=== PATIENT | female | born 1940 | race Caucasian/White ===

== ENCOUNTER 2016-09-16 19:54 | Day surgery (SDC) | payer MEDICARE ==
[~2016-09-16] VITALS: Ht 170.2 cm; Wt 79.8 kg
[2016-09-17 00:18] LABS: HEMATOCRIT 36.3 % (36.0-48.0); HEMOGLOBIN 11.6 g/dL (12-16); LYMPHOCYTES 14.9 % (15-50); MCH 25.8 pg (26.0-34.0); MCV 80.7 fL (80.0-100.0); MEAN PLATELET VOLUME 10.3 fL (7.4-10.4); NEUTROPHILS 77.2 % (40-80); PLATELET COUNT 222 10x3/uL (130-400); RDW 15.1 % (11.5-14.5); WBC 6.9 10x3/uL (4.8-10.8)
[2016-09-17 00:22] LABS: INR 0.97 (0.85-1.17); PROTIME 12.7 SECONDS (11.6-15.0)
[2016-09-17 00:27] LABS: ALBUMIN 3.7 g/dL (3.4-5.0); ALKALINE PHOSPHATASE 119 U/L (46-116); ALT (SGPT) 51 U/L (10-68); BILIRUBIN - TOTAL 0.38 mg/dL (0.2-1.3); CALC OSMOLALITY 275 mosm/kg (275-300); CALCIUM 9.1 mg/dL (8.5-10.1); CARBON DIOXIDE 32.9 mmol/L (21.0-32.0); CHLORIDE - SERUM 99 mmol/L (98-107); CREATININE - SERUM 0.6 mg/dL (0.6-1.3); GLUCOSE 121 mg/dL (74-106); POTASSIUM - SERUM 3.4 mmol/L (3.5-5.1); PROTEIN - SERUM 7.9 g/dL (6.4-8.2); SODIUM 138 mmol/L (136-145); UREA NITROGEN 10 mg/dL (7-18); eGFR NON AFRICAN AMERICAN > 90 mL/min (90-120)
[2016-09-17 01:48] VITALS: BP 186/99; BMI 27.6
[2016-09-17 04:00] VITALS: BP 175/74
[2016-09-17] MEDS ORDERED: NAPROXEN SODIU550 M1 PO (05:49)
[2016-09-17] MEDS ORDERED: LEVOTHYROXINE50 MCG PO (05:50)
[2016-09-17] MEDS ORDERED: LISINOPRIL10 MG PO (05:50)
--- NOTE | 2016-09-17 08:05 | NUR ---
PATIENT IS AWAKE AND ALERT, RATES PAIN A 1, DOES C/O HIP PAIN THAT SHE SAYS IS SORE. REQUESTED TO SEE HAND XRAY. ASKED HER TO ASK THE PHYSICIAN. PATIENTS FAMILY AT BEDSIDE.
--- NOTE | 2016-09-17 08:41 | NUR ---
MARLEE JOY APN ASSESSED PATIENT AND SHE IS GOING TO HAVE SURGERY THIS AM BY DR. SANTO. LEFT WRIST PINNING.
[2016-09-17 08:47] VITALS: BP 147/68
--- NOTE | 2016-09-17 10:30 | NUR ---
CONSENTS SIGNED BY PATIENT, BUT SHE REFUSED TO SIGN THE ANESTHESIA CONSENT UNTIL SHE SPOKE TO ANESTHESIOLOGIST.
--- NOTE | 2016-09-17 11:18 | NUR ---
IV access-20 gauge inserted in right hand for IV access. Priscilla Honeycutt RN
--- NOTE | 2016-09-17 11:55 | NUR ---
PREOP MEDS GIVEN AND PATIENT TAKEN TO SURGERY.
[2016-09-17 13:07] VITALS: Ht 170.2 cm; Wt 79.8 kg
--- NOTE | 2016-09-17 13:12 | NUR ---
PATIENT BACK FROM SURGERY, LEFT ARM IN SLING, PATIENT TOLERATING WELL.
--- NOTE | 2016-09-17 15:00 | NUR ---
PATIENT REQUESTING TO GO HOME.
--- NOTE | 2016-09-17 16:30 | NUR ---
PROVIDING PATIENT LAST IV ANTIBIOTICS AND NURSE PRACTITIONER HAS STATED SHE CAN GO HOME. ICE CAP APPLIED TO RIGHT WRIST.
[2016-09-17] MEDS ORDERED: DILAUDID4 MG PO (17:19)
--- NOTE | 2016-09-17 19:16 | NUR ---
DISCHARGED TO HOME AMBULATORY WITH FAMILY. DISCHARGE INSTRUCTIONS GIVEN BOTH VERBALLY AND WRITTEN. ALL QUESTIONS ANSWERED. PATIENT AND FAMILY VERBALIZED UNDERSTANDING OF SAME. IV TO RIGHT HAND D/C WITH CATHERTER INTACT. FAMILY IN ROOM.
--- NOTE | 2016-10-05 13:10 | OP ---
PATIENT NAME: JANET DICK MEDICAL RECORD: [id number] :39 LOCATION:[facility] ADMISSION DATE: SURGEON: CARIN SANTO MD DATE OF OPERATION: 09/17/2016 PREOPERATIVE DIAGNOSIS: Comminuted distal radius fracture of the left wrist. POSTOPERATIVE DIAGNOSIS: Comminuted distal radius fracture of the left wrist. PROCEDURE: Closed reduction internal fixation of left wrist. SURGEON: Carin Santo MD. ANESTHESIA: General. INTRAOPERATIVE COMPLICATIONS: None. SUMMARY OF PATHOLOGIC FINDINGS: The patient had a very distal comminuted distal radius fracture. OPERATIVE SUMMARY IN DETAIL: After obtaining the appropriate orthopedic surgery consents as well as anesthetic consultation, evaluation and clearance, the patient was brought to the operating room and placed on the operating table in supine position. After general laryngeal mask was administered, tourniquet was placed about the proximal aspect of left upper extremity. Left upper extremity was then prepped and draped in routine sterile fashion. Traction-countertraction maneuver was required to reduce the wrist and after the wrist was reduced, it was felt that plating was not an option given the distal aspect of this, although the articular portions were well reduced. At this point, a radial styloid to ulnar cortex pin was placed and then a total of 3 dorsal pins were placed in order to buttress the distal radius and maintain the radial angle of inclination as well as the volar tilt. After the pins were placed, radiographs were taken and submitted for radiologist review. The K-wires were clipped and covered with Jurgan balls. Sterile dressings were applied. A volar splint was applied. The patient was awakened, extubated, and taken to recovery room in stable condition. All final needle and sponge counts were correct. TRANSINT:[id number] Voice Confirmation ID: [id number] DOCUMENT ID: [id number] CARIN SANTO MD at 1310 CC: [id number] DICTATION DATE: 10/01/16 1328 HEAVY EQUIPMENT FIELD MECHANIC: 10/01/16 1457 [facility] 09/17/16 [place] [id number] [place] [id number]
== END 2016-09-17 19:19 | disposition home or self-care (01) ==
LOC: OBSVTIME → D.MS 19:54 → D.OPS 19:54 → D.ER 19:54 → D.MS 23:40 → D.ER 23:43 → D.MS 23:43 → OBSVTIME 09-17 08:00 → EDSTATUS 09-17 10:30 → D.OPS 09-17 19:19 → D.MS 09-17 19:19
PROVIDERS: Emergency Medicine
DX: S52.532A Colles' fracture of left radius, initial encounter for closed fracture (principal); W19.XXXA Unspecified fall, initial encounter; Y93.89 Activity, other specified; Y92.018 Other place in single-family (private) house as the place of occurrence of the external cause; I10 Essential (primary) hypertension; E07.9 Disorder of thyroid, unspecified

== ENCOUNTER → 2017-10-27 19:27 | Outpatient (CLI) | payer MEDICARE ==
[2016-09-17 13:07] VITALS: BMI 27.5
[~2017-10-27 19:27] MED LIST: DILAUDID4 MG PO; DITROPAN X5 MG/BOTTL PO; IBUPROFEN600 MG PO; LEVOTHYROXINE50 MCG PO; NAPROXEN SODIU550 M1 PO; NORCO 7.5/325 T1 TA1 PO; PRINIVIL20 MG PO
== END | disposition home or self-care (01) ==
LOC: D.MAMMO 09:30
DX: N63.10 Unspecified lump in the right breast, unspecified quadrant (principal)

== ENCOUNTER 2017-12-08 07:50 | Day surgery (SDC) | payer MEDICARE ==
[2017-12-07 11:11] LABS: HEMATOCRIT 39.5 % (36.0-48.0); HEMOGLOBIN 12.8 g/dL (12-16); MCH 26.6 pg (26.0-34.0); MCHC 32.4 g/dL (31.0-37.0); MCV 82.1 fL (80.0-100.0); MEAN PLATELET VOLUME 10.9 fL (7.4-10.4); RBC 4.81 10x6/uL (4.00-5.40); RDW 14.6 % (11.5-14.5); WBC 5.3 10x3/uL (4.8-10.8)
[~2017-12-08] VITALS: Ht 167.6 cm; Wt 75.0 kg
--- NOTE | ~2017-12-08 | OP ---
PATIENT NAME: JANET DICK MEDICAL RECORD: [id number] :39 LOCATION:[facility] ADMISSION DATE: SURGEON: SAVANNAH ASHLEY MD DATE OF OPERATION: 12/08/2017 SURGEON: Savannah Ashley MD ANESTHESIA: General anesthesia by Dr. Jorge Hawk. DIAGNOSES: Stress urinary incontinence, [place]-Walker grade 4 midline cystocele, [place]-Walker grade 2 rectocele and enterocele grade II. PROCEDURES: Cystoscopy, examination under anesthesia, repair of bladder perforation, pubovaginal sling with bovine dermis [employer] Xenform 2 x 4 cm graft, cystocele repair using [employer] Xenform bovine dermis graft 8 x 12 cm, rectocele repair by levator ani muscle plication using 0 Prolene sutures times 6 with a 2-0 Prolene suture to repair the perineal body. SPECIMEN: Posterior vaginal wall mucosa. FINDINGS: Cystocele grade 3, stress urinary incontinence noted when suprapubic pressure was applied with the cystocele being manually reduced, rectocele grade 2 all [place]-Walker scale. Intraoperative bladder perforation about 5 mm in length on the lateral bladder surface. This was due to the Capio suture regional otr company driver passing a suture through the bladder wall. Ureteral orifices are distant from the site of injury. ESTIMATED BLOOD LOSS: 150 mL CLINICAL HISTORY: This is a 77-year-old female who is status post hysterectomy. She has an issue with incomplete bladder emptying, and on examination, she has a visible midline cystocele and a rectocele. She had multiple questions about her surgery, which I answered preoperatively in the office. Specifically, she consented to have cystocele repair with mesh. She was aware of the risks of mesh use. However, if issues arose we would switch to using dermal graft. We will try to do all the repairs through a vaginal approach. If the anterior and posterior repairs lead to significant enterocele developing later on, we can do an abdominal sacral colpopexy at that time. She had a bowel prep at home. The debated in my mind was whether or not she should have a pubovaginal sling at the same time as the cystocele repair. She does not currently describe any stress urinary incontinence. However, it is known that reduction of a cystocele may unmask occult stress urinary incontinence. Therefore, I was going to examine her under anesthesia to determine whether this may be the situation or not. She is allergic to codeine. She has ampicillin and sulbactam 3 grams IV composition siding worker to the OR. DESCRIPTION OF PROCEDURE: The patient was given induction of general anesthesia. She was placed in the dorsal lithotomy position and prepped and draped. A weighted speculum was used to hold down the posterior vaginal wall. A Roque catheter 16-Upper Sorbian was placed into the bladder and put to bag drainage. Stay sutures of #2 nylon were used to retract the labia majora laterally. These were anchored to the medial thighs. The cystocele was clearly visible. We infiltrated the anterior vaginal wall with Pitressin solution. Twenty units of Pitressin was dissolved in 100 mL of injectable saline. This OPERATIVE REPORT [id number] JANET DICK was used to inject the anterior vaginal wall for hydrodissection. As I was planning initially to use mesh for cystocele repair, a transverse incision was made at the level of the bladder neck. Metzenbaum scissors were used to dissect the bladder away from the vaginal mucosa. Laterally, we entered through the pubocervical fascia. We entered the space of Retzius anteriorly. Posteriorly, we entered the presacral space to expose the sacrospinous ligaments. At this time, we had the [employer] Uphold graft and we placed the left arm of the graft through the left sacrospinous ligament using the Capio suture regional otr company driver. The landmark is the ischial spine, which is the insertion point of the sacrospinous ligament. The Capio was then moved 1 cm medially from the ischial spine to avoid hitting the pudendal nerve and internal pudendal artery. The graft arm on the left side went cleanly through the sacrospinous ligament and was found to be very strong when we pulled on the suture. On the right side, I had considerable difficulty getting the bladder out of the way. I used a malleable retractor to keep the excessively redundant bladder out of the way. Eventually, I got what appeared to be a good bite. I pulled on the suture did test the strength of its anchorage. We then got a sung of urine coming out of the bladder. The tugging on the suture pulled through the bladder wall exposing a small laceration. The Roque catheter was removed and we performed cystoscopy. This showed 2 small lacerations of full thickness in the bladder wall. These were on the anterior right lateral wall. They were anterior to the ureteral orifices by some distance. With the bladder full with saline from the cystoscope, we could identify the locations of these small lacerations. In order to facilitate visualization of the lateral wall of the bladder, I turned the transverse incision into a T-shaped incision by cutting the anterior vaginal wall midline with Metzenbaum scissors. This allowed us to pull the bladder over to the opposite side and allowed us to see the right lateral wall of the bladder much more easily. The laceration points were seen. 3-0 Vicryl running sutures were used in a single layer to close each of these holes. Due to the presence of the bladder leak, mesh is contraindicated. Therefore, I will be using bovine dermis, which is marketed by [employer] [address] [employer] under the trade name of Xenform. This will be the graft material for the pubovaginal sling and the cystocele repairs. The distance from ischial spine to ischial spine was measured with a flexible ruler at 12 cm. The distance from the bladder neck to the apex of our vaginal dissection was 6 cm. On an 8 x 12 cm Xenform sheet, an arch was drawn out posteriorly. The mid portion of the graft was cut so that the mid portion distance was only 6 cm. This arch gives room for the rectum to prevent difficulty with defecation. At this point, the Capio sutures were again used to place five 2-0 Polyglytone sutures. They were placed one in each sacrospinous ligament. The anterior sutures were placed at the apex of the obturator membrane on each side. Finally, an apical midline suture at the apex of the vaginal dissection where the cervical cuff would have been, was placed. We then went suprapubically to produce the pubovaginal sling. A 2 cm incision was made transversely at the level of the symphysis pubis. Blunt dissection was used with the fingers to get down to the rectus fascia. Stamey needles were then passed through the suprapubic incision down into the OPERATIVE REPORT [id number] JANET DICK vaginal dissection space. The needle tips were intercepted by a finger in the space of Retzius. This finger guided the needle tip down and prevented injury to the bladder along its passage. Once the Stamey needles were placed on each side, the Roque catheter was again removed and cystoscopy was performed. No bladder injury from the needle passage was seen. The bladder was filled to capacity with the cystoscope. The cystoscope was then removed. A horizontal mattress suture of 2-0 Prolene was placed on either end of the 2 x 4 cm Xenform strip. This would serve as a pubovaginal sling. The tails of the sutures were placed through the eyelet of the Stamey needles. The needles were then withdrawn so that the sutures were drawn suprapubically. Initially, the graft was placed flat under the mid urethra with no tension on the suspensory sutures. Once I applied suprapubic pressure and reduced the cystocele manually, we could see leakage of urine per the urethra. Gradually, the tension on the suspensory sutures was increased until no further leakage was seen with suprapubic pressure. Rubber shod clamps were then applied to the suspensory sutures at this point to prevent any migration of the sutures while they are being tied down. The suspensory sutures were tied to each other and then the rubber shods were removed. The suprapubic incision was washed out with normal saline and then israel were used to close the skin incision. Going down below in the vaginal dissection space, the sling graft tended to curl. I unfurled it to make it completely flat under the mid urethra. A small tacking suture of 4-0 Vicryl was placed against the distal edge of the pubovaginal sling and going to the periurethral tissue to prevent its curling inwards. This completed the pubovaginal sling. As far as the cystocele repair was concerned we placed the graft into position. The 5 suspensory sutures were placed in their respective areas on the graft. The graft was then placed into position by pulling it down with forceps. All of the suspensory sutures were tied down and this resulted in excellent reduction of the cystocele. There was no further leakage of urine from the bladder. The vaginal wound was irrigated out using normal saline. The vaginal mucosa was closed using running 4-0 Monocryl. We then turned our attention to the rectocele repair. The posterior vaginal wall was infiltrated with Pitressin solution for hydrodissection. A ramana shaped area of the posterior vaginal wall mucosa was marked. The incision was made using #15 blade. Metzenbaum scissors were used to dissect the posterior vaginal wall mucosa off the rectum. This ramana shaped specimen was sent to pathology for identification. We then dissected along the lateral edges of the vaginal mucosa, posterior vaginal mucosa until we got lateral to the rectum on each side. Blunt dissection was then used to allow us to reach the levator ani muscles (pubococcygeus, and iliococcygeus) on each side. We then placed 0 Prolene sutures using the Capio suture regional otr company driver. These were placed through the levator muscles on either side in a horizontal mattress fashion and then tied down. We started from the deepest suture first and progressively worked our way out. A total of 5 of these 0 Prolene sutures were placed using the Capio suture regional otr company driver. This resulted in complete reduction of the rectocele. The perineal body was still deficient. A 2-0 Prolene conventional suture was used in a horizontal mattress fashion to close the perineal body defect. The vaginal dissection space was then irrigated out with normal saline containing gentamicin. We then closed the posterior vaginal wall mucosa with running 4-0 Monocryl. The Roque catheter was inserted back into the bladder. This will be kept in for a period of 10 days to allow the bladder to heal. Vaginal packing consisting of Kerlix infiltrated with estrogen cream was placed in the vagina. The patient will be kept for 23-hour OPERATIVE REPORT [id number] JANET DICK. Tomorrow morning, the vaginal packing will be removed. She will be going home with a Roque catheter. TRANSINT:[id number] Voice Confirmation ID: [id number] DOCUMENT ID: [id number] SAVANNAH ASHLEY MD at 2024 CC: [id number] DICTATION DATE: 12/08/171708 TITLE INVESTIGATOR: 12/08/171918 [facility] [address] [place] [id number]
[~2017-12-08 07:50] MED LIST changes: -DITROPAN X5 MG/BOTTL PO; -NORCO 7.5/325 T1 TA1 PO
[2017-12-08 09:55] VITALS: BP 128/75; BMI 26.7
[2017-12-08 18:10] VITALS: BP 152/70
[2017-12-08 19:24] VITALS: BP 162/77
[2017-12-08 19:49] VITALS: BP 146/67
[2017-12-08 20:45] VITALS: BP 141/65; Ht 167.6 cm; Wt 75.0 kg
[2017-12-09 00:08] VITALS: BP 156/70
[2017-12-09 04:32] VITALS: BP 130/60
[2017-12-09 09:20] VITALS: BP 144/65
[2017-12-09] MEDS ORDERED: NORCO 7.5/325 T1 TA1 PO (13:47)
[2017-12-09] MEDS ORDERED: DITROPAN X5 MG/BOTTL PO (13:48)
== END 2017-12-09 15:00 | disposition home or self-care (01) ==
LOC: D.LD 07:50 → D.OPS 07:50 → D.PAN 10:20 → D.OPS 11:00 → D.PAN 11:00 → D.LD 17:27 → D.OPS 12-09 15:00
PROVIDERS: Anesthesiology
DX: N39.3 Stress incontinence (female) (male) (principal); N81.11 Cystocele, midline; N81.2 Incomplete uterovaginal prolapse; Z01.812 Encounter for preprocedural laboratory examination

== ENCOUNTER → 2018-04-14 17:37 | Outpatient (CLI) | payer MEDICARE ==
[2017-12-08 20:45] VITALS: BMI 26.7
[~2018-04-14 17:37] MED LIST changes: +DITROPAN X5 MG/BOTTL PO; +NORCO 7.5/325 T1 TA1 PO
== END | disposition home or self-care (01) ==
LOC: D.LABREF 17:37
DX: R31.9 Hematuria, unspecified (principal); D72.829 Elevated white blood cell count, unspecified

== ENCOUNTER → 2018-05-02 18:37 | Outpatient (CLI) | payer MEDICARE ==
[2017-12-08 20:45] VITALS: BMI 26.7
== END | disposition home or self-care (01) ==
LOC: D.LABREF 18:37
DX: D72.829 Elevated white blood cell count, unspecified (principal)

== ENCOUNTER 2018-05-19 06:56 | Day surgery (SDC) | payer MEDICARE ==
[2018-05-18 12:12] LABS: HEMATOCRIT 39.8 % (36.0-48.0); HEMOGLOBIN 12.8 g/dL (12-16); MCH 26.6 pg (26.0-34.0); MCHC 32.2 g/dL (31.0-37.0); MCV 82.7 fL (80.0-100.0); RBC 4.81 10x6/uL (4.00-5.40); RDW 14.9 % (11.5-14.5); WBC 6.2 10x3/uL (4.8-10.8)
[~2018-05-19] VITALS: Ht 167.6 cm; Wt 74.4 kg
--- NOTE | ~2018-05-19 | OP ---
PATIENT NAME: JANET DICK MEDICAL RECORD: [id number] :39 LOCATION:D[facility] ADMISSION DATE: SURGEON: TORIBIO ASHLEY MD DATE OF OPERATION: 05/19/2018 SURGEON: Toribio Ashley MD ANESTHESIA: General anesthesia by Marcio Mccray MD DIAGNOSES: Urinary retention post-pubovaginal sling; recurrence of cystocele, grade III. PROCEDURE: Cystoscopy; urethrolysis; cystocele repair with mesh graft, [employer] Uphold. FINDINGS: Well-incorporated fascial graft. Grade III [place]-Walker scale cystocele. Heavily trabeculated bladder with no bladder tumors. No bladder injury. Single ureteral orifices on each side. BLOOD LOSS: Less than 50 mL. CLINICAL HISTORY: This is a 77-year-old female who had stress urinary incontinence as well as pelvic prolapse post-hysterectomy. She had earlier this year a pubovaginal sling and cystocele repair using bovine fascia. She also had a rectocele repair with levator ani plication. Postoperatively, she has been in chronic urinary retention. She performs self-intermittent catheterization several times a day. Also, when I examined her, she has recurrence of the cystocele, grade III. Her rectocele repair has held and it is well reduced. She comes today to have a urethrolysis performed to loosen up her pubovaginal sling. Also, I will place a new cystocele repair using mesh this time. She is aware of the risks of infection with mesh use. SHE IS ALLERGIC TO CODEINE. She was given Ancef IV inspector precision assembly to the OR. DESCRIPTION OF PROCEDURE: The patient was given induction of general anesthesia. She was then placed in dorsal lithotomy position and shaved, prepped and draped. A weighted speculum was placed to hold the posterior vaginal wall down. A Roque catheter was placed in the bladder and put to bag drainage. A #1 nylon sutures were placed through the labia majora and anchored to the medial thighs. These stay sutures acted to open up the labia. The cystocele was very evident and down to the introitus. The anterior vaginal wall was infiltrated with Pitressin solution. Twenty units of Pitressin and 100 mL of injectable normal saline was used for hydrodissection. A transverse incision was then made at the bladder neck using a #15 scalpel. Dissection was then performed using Metzenbaum scissors. The bladder was dissected away from the anterior vaginal wall. Posteriorly, we reentered the presacral space. I could still feel the suspensory sutures from the fascial graft in place there. Anteriorly, we cleaned up the obturator membrane. We had a very clear route for placement of our Capio sutures in the near future. I then focused on the urethra. The area on the right side of the urethra seemed to be a little more easy to access. The grafts were still visible. However, they were well incorporated into the bladder tissue. I lifted up the inferior edge of the urethral graft, lateral to the urethra. By using a right angle dissector, I was able to finally make a plane between the periurethral tissues and the graft. I was eventually able to completely transect the fascial graft on the right lateral side of the urethra for the urethrolysis. OPERATIVE REPORT [id number] JANET DICK We then focused on placement of the cystocele repair graft, which will be a mesh graft. The trade name is [employer]. The Capio suture was loaded with the graft tail. The sacrospinous ligament was identified. It's anchorage to the ischial spine was identified. About 1 cm medial to the ischial spine, the Capio suture was placed through the sacrospinous ligament. This was done on each side. We then brought the graft arms through in order to start reduction of the cystocele. There is a stripe on the graft, indicating the midline of the graft. At the apex of the vaginal dissection, I placed a 2-0 Vicryl suture through the vaginal mucosa. This was placed in the corresponding location at the apical notch of the graft. In this situation, we took the Roque catheter out and cystoscopy was performed. Cystoscopic findings are as outlined above. We took the Roque catheter out and cystoscopy was performed. No bladder injury was identified. The cystoscope was then removed and the Roque catheter was placed back into the bladder. All the sutures were tied down; that is, the apical suture was tied down and the 2 lateral graft arms were pulled through the sacrospinous ligaments to complete reduction of the cystocele. Another suture of 2-0 Vicryl was placed near the bladder neck to hold down the distal portion of the graft so that the graft would not curl up. At this point, the wound was irrigated out with normal saline. The vaginal mucosa was closed using running 4-0 Monocryl. The vagina was packed with Kerlix infiltrated with estrogen cream. The patient will have the vaginal packing removed prior to going home today. We also removed her Roque catheter for a voiding trial today. I will see her in followup next week. TRANSINT:[id number] Voice Confirmation ID: [id number] DOCUMENT ID: [id number] TORIBIO ASHLEY MD at 1624 CC: [id number] DICTATION DATE: 05/19/18 1326 DRAG SAWYER: 05/19/18 1430 [place] [id number] [place] [id number]
[2018-05-19 07:53] VITALS: BP 129/78; Ht 167.6 cm; Wt 74.4 kg
== END 2018-05-19 16:20 | disposition home or self-care (01) ==
LOC: D.OPS 06:56 → D.PAN 09:45 → D.OPS 16:20
PROVIDERS: Anesthesiology
DX: N99.89 Other postprocedural complications and disorders of genitourinary system (principal); R33.9 Retention of urine, unspecified; N81.10 Cystocele, unspecified; N32.89 Other specified disorders of bladder; Z88.5 Allergy status to narcotic agent; Z79.899 Other long term (current) drug therapy

== ENCOUNTER → 2018-06-06 16:20 | Outpatient (CLI) | payer MEDICARE ==
[2018-05-19 07:53] VITALS: BMI 26.5
== END | disposition home or self-care (01) ==
LOC: D.LABREF 16:20
DX: R31.9 Hematuria, unspecified (principal); D72.829 Elevated white blood cell count, unspecified

== ENCOUNTER → 2018-07-18 17:54 | Outpatient (CLI) | payer MEDICARE ==
[2018-05-19 07:53] VITALS: BMI 26.5
== END | disposition home or self-care (01) ==
LOC: D.LABREF 17:54
DX: D72.829 Elevated white blood cell count, unspecified (principal)

== ENCOUNTER 2018-10-03 10:00 | Outpatient (CLI) | payer MEDICARE ==
[2018-05-19 07:53] VITALS: BMI 26.5
== END 2018-10-03 11:00 | disposition home or self-care (01) ==
LOC: D.MAMMO 10:00
PROVIDERS: ATTEND Family Medicine
DX: N63.11 Unspecified lump in the right breast, upper outer quadrant (principal)